=== PATIENT | female | born 1990 | race Caucasian/White ===

== ENCOUNTER 2017-09-25 20:49 | Emergency (ER) | payer BC, OTHER, SELFPAY ==
--- NOTE | 2017-09-25 21:22 | RAD ---
CHEST ONE VIEW 09/25/17 HISTORY: Dyspnea. COMPARISON: 02/06/13. FINDINGS: The cardiac silhouette is magnified by projection. Pulmonary vasculature is accentuated by shallow in spiration. Mediastinum is midline. There is no confluent air space consolidation, or evidence of pneu mothorax. Metallic device overlying the right atrium is stable. IMPRESSION: No active cardiopulmonary abnormalities are demonstrated. POS: [facility]
[2017-09-25 21:48] LABS: #Basophils 0.1 thou/uL (0.0-0.2); #Eosinphils 0.1 thou/uL (0.0-0.7); #Lymphocytes 1.6 thou/uL (1.20-3.40); #Monocytes 0.4 thou/uL (0.11-0.59); #Neutrophils 3.6 thou/uL (1.40-6.50); %Basophils 1.9 % (0.0-1.0); %Eosinophils 1.8 % (0.0-10.0); %Lymphocytes 27.4 % (21.0-51.0); %Monocytes 7.4 % (0.0-10.0); Hematocrit 41.3 % (36.0-47.0); Mean Platelet Volume 6.6 fL (7.4-10.4); Red Blood Cell (RBC) Count 5.02 mill/uL (4.20-5.40); White Blood Cell (WBC) Count 5.9 thou/uL (4.8-10.8)
[2017-09-25 21:49] LABS: ALT (SGPT) 17 U/L (8-55); AST (SGOT) 22 U/L (5-34); Alkaline Phosphatase 65 U/L (40-150); Anion Gap 15 mmol/L (10-20); BUN (Urea Nitrogen) 10 mg/dL (7.0-18.7); Bilirubin, Total 0.5 mg/dL (0.2-1.2); CK (CPK) 83 U/L (29-168); Calc. Creatinine Clearance 0 mL/min (70-130); Calcium 9.5 mg/dL (7.8-10.44); Carbon Dioxide 22 mmol/L (22-29); Chloride 106 mmol/L (98-107); Estimated GFR-MDRD Greater than 90; Globulin 3.1 g/dL (2.4-3.5); Lipase 37 U/L (8-78); Protein, Total 7.4 g/dL (6.0-8.3); Troponin I Less than 0.010 ng/mL (< 0.028)
--- NOTE | 2017-11-07 14:39 | EKG ---
Test Reason : SOB Blood Pressure : / mmHG Vent. Rate : 091 BPM Atrial Rate : 091 BPM P-R Int : 134 ms QRS Dur : 088 ms QT Int : 358 ms P-R-T Axes : 041 069 027 degrees QTc Int : 440 ms Normal sinus rhythm with sinus arrhythmia Possible Inferior infarct , age undetermined Nonspecific ST abnormality Abnormal ECG Confirmed by MATIAS DEJESUS ([id number]), general expeditor JOSE MARTIN MENDIOLA ([id number]) on 11/07/2017 2:38:39 PM Referred By: Confirmed By:MATIAS DEJESUS
== END 2017-09-25 22:07 | disposition home or self-care (01) ==
LOC: SCSER 20:49
DX: R07.89 Other chest pain (principal)
CPT/HCPCS: 71010; 80053; 82550; 82553; 83690; 84443; 84484; 85025; 85379; 93005

== ENCOUNTER 2018-01-02 09:09 | Emergency (ER) | payer BC, OTHER, SELFPAY ==
[2018-01-02] MEDS ORDERED: Pantoprazole 40 MG VIAL ONE (09:57)
[2018-01-02] MEDS ORDERED: Ondansetron HCl/PF 4 MG/2 ML Vial ONE ×2 (09:57→10:43)
[2018-01-02] MEDS ORDERED: Lidocaine Viscous Sol 2% 15 ml UD Cup ONE (09:57)
[2018-01-02] MEDS ORDERED: Mag-Al Plus 1200 MG/1200 MG/120 MG/30 ML UDCUP ONE (09:57)
[2018-01-02 10:10] LABS: BHCG - Serum Negative (NEGATIVE); Pregs Control Background? CLEAR/WHITE (CLR/WHITE); Pregs Control Bar Appear? YES (CONTROL BAR)
[2018-01-02 10:15] LABS: Hemoglobin 16.4 g/dL (12.0-16.0); Mean Corpuscular HGB CONC 34.4 g/dL (32.0-36.0); Mean Corpuscular Hemoglobin 27.8 pg (27.0-31.0); Mean Platelet Volume 7.9 fL (7.4-10.4); Platelet Count 251 thou/uL (130-400); Red Blood Cell (RBC) Count 5.91 mill/uL (4.20-5.40)
[2018-01-02 10:17] LABS: ALT (SGPT) 20 U/L (8-55); AST (SGOT) 24 U/L (5-34); Albumin 4.7 g/dL (3.5-5.0); Alkaline Phosphatase 68 U/L (40-150); Anion Gap 19 mmol/L (10-20); BUN (Urea Nitrogen) 13 mg/dL (7.0-18.7); Bilirubin, Total 1.2 mg/dL (0.2-1.2); Calc. Creatinine Clearance 0 mL/min (70-130); Calcium 9.7 mg/dL (7.8-10.44); Carbon Dioxide 18 mmol/L (22-29); Chloride 105 mmol/L (98-107); Estimated GFR-MDRD Greater than 90; Globulin 3.2 g/dL (2.4-3.5); Glucose 106 mg/dL (70-105); Protein, Total 7.9 g/dL (6.0-8.3); Sodium 138 mmol/L (136-145)
[2018-01-02 10:19] LABS: Troponin I Less than 0.010 ng/mL (< 0.028)
[2018-01-02 10:26] LABS: Band 8 % (5-11); Lymphocytes 4 % (21-51); MDiff Complete? YES; Monocytes 2 % (0-10); Neutrophil 85 % (42-75); PLT Morphology Comment Appears Adequate; RBC Morphology Normal; Reactive Lymphocytes 1 % (0-10)
[2018-01-02 10:29] LABS: Bilirubin Small (Negative); Blood, Urine Negative (Negative); Clarity Clear (Clear); Glucose, Urine (Dipstick) Negative (Negative); Leukocyte Negative (Negative); Nitrite Negative (Negative); Protein, Urine (Dipstick) Trace mg/dL (Neg-Trace); Specific Gravity, Urine 1.015 (1.005-1.030); Urobilinogen 0.2 mg/dL (0.2-1.0); pH, Urine 7.5 (5.0-9.0)
[2018-01-02 10:30] LABS: Pregnancy Test - Urine (BHCG) Negative (Negative); Pregu Control Background? CLEAR/WHITE (CLR/WHITE); Pregu Control Bar Appear? YES (CONTROL BAR); Specific Gravity 1.015 (1.002-1.036)
[2018-01-02 10:39] LABS: Amphetamine Not Detected (NotDetected); Barbiturates Screen Not Detected (NotDetected); Benzodiazepine Screen Not Detected (NotDetected); Cocaine Metabolite Screen Not Detected (NotDetected); Medtox Control Line Valid? VALID (VALID); Methadone Not Detected (NotDetected); Methamphetamine Not Detected (NotDetected); Opiate Screen Not Detected (NotDetected); Oxycodone Screen Not Detected (NotDetected); Phencyclidine (PCP) Not Detected (NotDetected); THC/Cannabinoid Screen Not Detected (NotDetected); Tricyclic Screen Not Detected (NotDetected)
--- NOTE | 2018-01-02 11:27 | RAD ---
CHEST 1 VIEW: HISTORY: Chest pain. COMPARISON: 09/25/17. FINDINGS: Cardiac silhouette is magnified by projection. Pulmonary vasculature is upper limits of normal. Med iastinum is midline. There is no lobar consolidation or evidence of pneumothorax. IMPRESSION: No active cardiopulmonary abnormalities are demonstrated. POS: [facility]
--- NOTE | 2018-01-02 11:55 | CT ---
CT ABDOMEN AND PELVIS WITHOUT CONTRAST: Date: 01/02/18 HISTORY: Abdominal pain, emesis, epigastric pain radiating into the chest and left shoulder. FINDINGS: Absence of oral and IV contrast reduces the sensitivity of exam, particularly for evaluation of solid organs and bowel. The lung bases are clear. There are postop changes of cholecystectomy. No free air is seen. There is a small amount of free fluid in the pelvis. Postop changes are also seen in the right lower quadrant. Uterus and ovaries are present. There are multiple tiny calculi in the left kidney. No calculi seen in the right kidney, either urete r, or the urinary bladder. No hydroureteronephrosis is seen on either side. No acute osseous abnormal ities are seen. IMPRESSION: 1. Nonobstructing left renal calculi. 2. Small amount of free fluid in the pelvis. POS: [facility]
[2018-01-02] MEDS ORDERED: Acetaminophen 500 MG TAB ONE (12:49)
== END 2018-01-02 14:42 | disposition home or self-care (01) ==
LOC: SCSER 09:09
DX: K27.9 Peptic ulcer, site unspecified, unspecified as acute or chronic, without hemorrhage or perforation (principal); R11.2 Nausea with vomiting, unspecified; J45.909 Unspecified asthma, uncomplicated
CPT/HCPCS: 71045; 74176; 80053; 80306; 81003; 81025; 82553; 84484; 84703; 85025; 93005; 96361; 96374; 96375; 96376; C9113; J2405

== ENCOUNTER 2019-06-26 13:24 | Emergency (ER) | payer BC, MEDICAID ==
[2019-06-26] MEDS ORDERED: Metoclopramide HCl 10 MG/2 ML VIAL ONE (14:03)
[2019-06-26] MEDS ORDERED: diphenhydrAMINE 50 MG/ML VIAL ONE (14:03)
[2019-06-26] MEDS ORDERED: Acetaminophen 325 MG TAB ONE (14:18)
== END 2019-06-26 14:23 | disposition home or self-care (01) ==
LOC: ERS 13:24
DX: O99.89 Other specified diseases and conditions complicating pregnancy, childbirth and the puerperium (principal); R51 Headache; O99.511 Diseases of the respiratory system complicating pregnancy, first trimester; J45.909 Unspecified asthma, uncomplicated; Z3A.10 10 weeks gestation of pregnancy
CPT/HCPCS: 96365; 96375; J1200; J2765

== ENCOUNTER 2019-07-01 12:14 | Emergency (ER) | payer MEDICAID ==
[2019-07-01] MEDS ORDERED: Acetaminophen 500 MG TAB ONE (13:45)
[2019-07-01] MEDS ORDERED: Metoclopramide HCl 10 MG/2 ML VIAL ONE (13:46)
[2019-07-01] MEDS ORDERED: diphenhydrAMINE 50 MG/ML VIAL ONE (13:46)
[2019-07-01 14:13] LABS: #Lymphocytes 0.8 thou/uL (1.20-3.40); #Monocytes 0.3 thou/uL (0.11-0.59); #Neutrophils 7.6 thou/uL (1.40-6.50); %Basophils 0.1 % (0.0-1.0); %Eosinophils 0.2 % (0.0-10.0); %Lymphocytes 8.9 % (21.0-51.0); %Monocytes 3.2 % (0.0-10.0); %Neutrophils 87.6 % (42.0-75.0); Hemoglobin 12.9 g/dL (12.0-16.0); Mean Corpuscular HGB CONC 35.3 g/dL (32.0-36.0); Mean Corpuscular Hemoglobin 29.4 pg (27.0-31.0); Mean Corpuscular Volume 83.5 fL (78.0-98.0); Mean Platelet Volume 7.8 fL (7.4-10.4); Platelet Count 237 thou/uL (130-400); RBC Distribution Width 11.2 % (11.5-14.5); Red Blood Cell (RBC) Count 4.37 mill/uL (4.20-5.40); White Blood Cell (WBC) Count 8.6 thou/uL (4.8-10.8)
[2019-07-01 14:35] LABS: ALT (SGPT) 15 U/L (8-55); AST (SGOT) 19 U/L (5-34); Albumin 3.9 g/dL (3.5-5.0); Alkaline Phosphatase 54 U/L (40-150); Anion Gap 13 mmol/L (10-20); BUN (Urea Nitrogen) 5 mg/dL (7.0-18.7); Bilirubin, Total 0.3 mg/dL (0.2-1.2); Calc. Creatinine Clearance 0 mL/min (70-130); Calcium 8.9 mg/dL (7.8-10.44); Carbon Dioxide 22 mmol/L (22-29); Chloride 106 mmol/L (98-107); Estimated GFR-MDRD Greater than 90; Globulin 2.8 g/dL (2.4-3.5); Glucose 86 mg/dL (70-105); Potassium 3.5 mmol/L (3.5-5.1); Protein, Total 6.7 g/dL (6.0-8.3); Sodium 137 mmol/L (136-145)
[2019-07-01] MEDS ORDERED: Magnesium 2 GM/50 ML BAG (IN WATER) ONE (15:35)
--- NOTE | 2019-07-01 15:48 | CT ---
HEAD CT NONCONTRAST: 07/01/19 INDICATION: Headache. Reference made to 06/14/09 brain MRI. FINDINGS: There is a focal area of asymmetric hypoattenuation of the posterior right cerebral hemisphere. This likely relates to segmental imaging of the posterior most aspect of the right occipital horn. Otherwise, no acute intracranial hemorrhage, mass effect, midline shift, or ventriculomegaly. Imaged paranasal sinuses and mastoid air cells are clear. IMPRESSION: Focal hypoattenuation posterior right cerebrum. This could relate to partial imaging of the occipita l horn, although underlying gliosis cannot be entirely excluded. This could be more definitively conf irmed with follow-up brain MRI. POS: [facility]
--- NOTE | 2019-07-01 17:50 | MRI ---
BRAIN MRI WITHOUT CONTRAST: Date: 07/01/19 COMPARISON: None. HISTORY: Headache. TECHNIQUE: Multiplanar, multisequence MR imaging of the brain obtained without contrast. FINDINGS: The diffusion-weighted imaging demonstrates no evidence for acute infarction. The axial gradient echo imaging demonstrates no evidence for intracranial hemorrhage. The imaged paranasal sinuses/mastoid air cells demonstrate normal signal intensity aside from minimal mucosal thickening of the ethmoid air cells. Arterial flow-voids at the axial level of the skull bas e appear grossly unremarkable on the T2-weighted imaging. Regional bone marrow signal intensity appears within normal limits. The gradient echo imaging demonstrates no evidence for intracranial hemorrhage. IMPRESSION: No acute findings. POS: [facility]
[2019-07-01] MEDS ORDERED: Acetaminophen/Codeine 30-300mg Tablet ONE (18:13)
[2019-07-01 18:55] LABS: Bilirubin Negative (Negative); Blood, Urine Negative (Negative); Clarity Clear (Clear); Glucose, Urine (Dipstick) Normal (Negative); Leukocyte Negative Leu/uL (Negative); Nitrite Negative (Negative); Protein, Urine (Dipstick) Negative (Neg-Trace); Urobilinogen Normal mg/dL (Less than 2)
[2019-07-01] MEDS ORDERED: Ondansetron ODT 8 MG TAB ONE (19:25)
== END 2019-07-01 19:30 | disposition home or self-care (01) ==
LOC: ERS 12:14
DX: O21.9 Vomiting of pregnancy, unspecified (principal); O99.89 Other specified diseases and conditions complicating pregnancy, childbirth and the puerperium; R51 Headache; O99.511 Diseases of the respiratory system complicating pregnancy, first trimester; J45.909 Unspecified asthma, uncomplicated; Z3A.10 10 weeks gestation of pregnancy
CPT/HCPCS: 36415; 70450; 70551; 70553; 80053; 81003; 85025; J1200; J2765; J3475

== ENCOUNTER 2019-07-04 19:20 | Observation (INO) | payer OTHER ==
[2019-07-04] MEDS ORDERED: Acetaminophen 500 MG TAB ONE (19:35)
[2019-07-04] MEDS ORDERED: Metoclopramide HCl 10 MG/2 ML VIAL ONE ×2 (19:35→20:04)
[2019-07-04] MEDS ORDERED: diphenhydrAMINE 50 MG/ML VIAL ONE (19:35)
[2019-07-04 20:29] LABS: #Lymphocytes 0.8 thou/uL (1.20-3.40); #Monocytes 0.2 thou/uL (0.11-0.59); #Neutrophils 7.9 thou/uL (1.40-6.50); %Basophils 0.4 % (0.0-1.0); %Eosinophils 0.1 % (0.0-10.0); %Lymphocytes 8.5 % (21.0-51.0); %Monocytes 2.6 % (0.0-10.0); %Neutrophils 88.4 % (42.0-75.0); Hemoglobin 14.2 g/dL (12.0-16.0); Mean Corpuscular HGB CONC 34.2 g/dL (32.0-36.0); Mean Corpuscular Hemoglobin 28.3 pg (27.0-31.0); Mean Corpuscular Volume 82.8 fL (78.0-98.0); Platelet Count 248 thou/uL (130-400); RBC Distribution Width 11.3 % (11.5-14.5); Red Blood Cell (RBC) Count 5.02 mill/uL (4.20-5.40)
[2019-07-04 20:32] LABS: Base Excess-Venous -7.7 mmol/L (-2.0 to 3.0); Bicarbonate (HCO3v) 15.8 mmol/L (22.0-28.0); Calcium, Ionized 1.13 mmol/L (See Comments:); Chloride 107 mmol/L (98-107); Hemoglobin - Calc 14.4 g/dL (12.0-16.0); Potassium 3.4 mmol/L (3.5-5.1); Sodium 138 mmol/L (138-145); T. Carbon Dioxide 16.6 mmol/L (22.0-28.0); vO2 Saturation-calc 95.1 % (60.0-85.0)
[2019-07-04 20:44] LABS: ALT (SGPT) 17 U/L (8-55); AST (SGOT) 20 U/L (5-34); Albumin 4.3 g/dL (3.5-5.0); Alkaline Phosphatase 57 U/L (40-150); Anion Gap 19 mmol/L (10-20); BUN (Urea Nitrogen) 11 mg/dL (7.0-18.7); Bilirubin, Total 0.7 mg/dL (0.2-1.2); Calc. Creatinine Clearance 0 mL/min (70-130); Carbon Dioxide 15 mmol/L (22-29); Chloride 106 mmol/L (98-107); Estimated GFR-MDRD Greater than 90; Globulin 3.3 g/dL (2.4-3.5); Glucose 128 mg/dL (70-105); Potassium 3.4 mmol/L (3.5-5.1); Protein, Total 7.6 g/dL (6.0-8.3); Sodium 137 mmol/L (136-145)
[2019-07-04] MEDS ORDERED: Acetaminophen 325 MG TAB PO PRN (22:14)
[2019-07-04] MEDS ORDERED: Ondansetron PF 4 MG/2 ML Vial SLOW IVP PRN (22:14)
[2019-07-04] MEDS ORDERED: D5 1/2 NS w/20 mEq KCL 1,000 ML IV SCH (22:15)
[2019-07-04] MEDS ORDERED: Metoclopramide HCl 10 MG/2 ML VIAL IVP PRN (22:43)
[2019-07-04] MEDS ORDERED: diphenhydrAMINE 50 MG/ML VIAL IVP PRN (22:44)
[2019-07-04] MEDS ORDERED: Lactated Ringer's 1,000 ML IV SCH (23:00)
[2019-07-04] MEDS: diphenhydrAMINE 50 MG/ML VIAL IVP SCH (23:54)
[2019-07-05 00:51] VITALS: BMI 22.0
[2019-07-05] MEDS: Metoclopramide HCl 10 MG/2 ML VIAL IVP SCH ×3 (04:18→21:54)
[2019-07-05] MEDS: Lactated Ringer's 1,000 ML IV SCH ×4 (04:18→21:54)
[2019-07-05] MEDS: diphenhydrAMINE 50 MG/ML VIAL IVP SCH ×5 (04:19→21:58)
--- NOTE | 2019-07-05 07:16 | HP ---
PRIMARY METAL ENGRAVER: Tyron Alexander MD CHIEF COMPLAINT: Persistent nausea and vomiting with failed outpatient management. HISTORY OF PRESENT ILLNESS: The patient is a 29-year-old G3, P2 female with an intrauterine at about 10 weeks' gestation, re-presented to the emergency room a 3rd time for persistent nausea and vomiting. The patient reports that she has had about 12 pounds weight loss and has not been tolerating any kind of p.o. intake including ice for the last day or two. The patient reports she has also been complicating her situation or her migraines that have been exacerbating, making the nausea and vomiting worse than otherwise would be. The patient reports that her prior was also complicated by persistent nausea and vomiting. The patient's evaluation with her prior visits included CT and MRI of the head with a Neurology consult. The patient denies any fever or cough or illness, fall, chest pain, shortness of breath, diarrhea or constipation, hip problems, knee problems, vaginal bleeding or leakage of fluid, urinary urgency or frequency. PAST MEDICAL HISTORY: Asthma, ASD closure, and migraines. PAST SURGICAL HISTORY: Appendectomy, cholecystectomy, and prior x2. SOCIAL HISTORY: Denies drug, alcohol, or tobacco use. ALLERGIES: MORPHINE, WHICH CAUSES HEART PALPITATIONS AND AZITHROMYCIN. MEDICATIONS: 1. vitamins. 2. Zofran. 3. Phenergan. PHYSICAL EXAMINATION: VITAL SIGNS: Blood pressure 105/60, temperature 98.3, pulse of 92, respiratory rate of 17, and saturating 100% on room air. GENERAL: At the time of my evaluation, she appeared to be in minimal distress. Weak and lethargic. Otherwise, alert and oriented, cooperative and pleasant to interact with. HEENT: Head is normocephalic, atraumatic. LUNGS: Clear to auscultation bilaterally. HEART: Has regular rate and rhythm. ABDOMEN: Soft and nontender. EXTREMITIES: Nontender. Nonedematous. GENITOURINARY: Deferred at this time. LABORATORY DATA: Lab work showed a white count of 9, hemoglobin 14.2, hematocrit 41.5, and platelets of 249,000. Sodium of 138, potassium of 3.4, bicarb of 15, BUN of 11, creatinine of 0.66, glucose of 128, AST is 20, and ALT of 17. Beta-hydroxybutyrate of 2.56. ASSESSMENT AND PLAN: The patient is being admitted for IV hydration and IV antiemetics. She will be on Reglan 10 mg 3 times a day and Zofran 8 mg IV twice a day, Benadryl 12.5 mg every 4 hours, and vitamin B6 of 25 mg twice a day. Once she is feeling better and is able to feel of a p.o. trial and is tolerating it, we will convert the patient's medications over to p.o. Her primary OB is Dr. Tyron Alexander, who will be assuming care. Job ID: [id number]
[2019-07-05] MEDS: pyridOXINE 50 MG (B6) TAB PO SCH ×2 (09:16→21:59)
[2019-07-05] MEDS: Acetaminophen 500 MG TAB PO PRN (23:03)
[2019-07-06] MEDS: diphenhydrAMINE 50 MG/ML VIAL IVP SCH ×5 (01:27→18:00)
[2019-07-06] MEDS ORDERED: Sodium Chloride 0.9% 10 ML ONE ×2 (05:06→10:07)
[2019-07-06] MEDS: Metoclopramide HCl 10 MG/2 ML VIAL IVP SCH ×2 (05:13→14:13)
[2019-07-06] MEDS: Acetaminophen 500 MG TAB PO PRN (05:13)
[2019-07-06] MEDS: Lactated Ringer's 1,000 ML IV SCH ×2 (05:19→13:26)
[2019-07-06] MEDS: pyridOXINE 50 MG (B6) TAB PO SCH (10:10)
--- NOTE | 2019-07-06 19:00 | PDOC.EVN ---
Event Note - Event Note Event Note: Patient is no tolerating a regular diet, and feels well enough to go home. Offered the choise to stay one more night, she has asked to go home on po medications. She still has occasional loose sallie, but that too has improved. GEN: NAD, A&O x3 ABDOM: Soft, NT,ND, GRAVID EXTREM: NO C/C/E Psych: NL Affect Skin: NL Skin without evidence of dehydration. Assessment 1. Single IUP @ 11 and 5 weeks 2. Hyperemesis Gravidarum 3 Hx of x 2 Plan: 1. DC to home. 2. New Medication schedule 3. F/U next week in clinic
[2019-07-06 20:09] VITALS: BP 113/59; TEMP 97.6
== END 2019-07-06 19:50 | disposition home or self-care (01) ==
LOC: SCSER 19:20 → 3SW 22:19
PROVIDERS: ADMIT Obstetrics & Gynecology; ATTEND Obstetrics & Gynecology
DX: O21.1 Hyperemesis gravidarum with metabolic disturbance (principal); O99.351 Diseases of the nervous system complicating pregnancy, first trimester; G43.909 Migraine, unspecified, not intractable, without status migrainosus; O99.511 Diseases of the respiratory system complicating pregnancy, first trimester; J45.909 Unspecified asthma, uncomplicated; Z3A.10 10 weeks gestation of pregnancy; Z88.1 Allergy status to other antibiotic agents; Z88.5 Allergy status to narcotic agent
CPT/HCPCS: 36415; 80053; 82010; 82330; 82803; 85025; 96361; 96365; 96366; 96375; 96376; G0378; J1200; J2405; J2765

== ENCOUNTER 2019-11-25 16:05 | Emergency (ER) | payer OTHER ==
[2019-11-25 17:46] LABS: #Eosinphils 0.1 thou/uL (0.0-0.7); #Lymphocytes 1.3 thou/uL (1.20-3.40); #Monocytes 0.4 thou/uL (0.11-0.59); #Neutrophils 6.5 thou/uL (1.40-6.50); %Basophils 0.5 % (0.0-1.0); %Eosinophils 0.6 % (0.0-10.0); %Lymphocytes 15.5 % (21.0-51.0); %Monocytes 4.3 % (0.0-10.0); %Neutrophils 79.1 % (42.0-75.0); Hemoglobin 11.4 g/dL (12.0-16.0); Mean Corpuscular HGB CONC 34.7 g/dL (32.0-36.0); Mean Corpuscular Hemoglobin 29.2 pg (27.0-31.0); Mean Corpuscular Volume 84.1 fL (78.0-98.0); Mean Platelet Volume 7.5 fL (7.4-10.4); Platelet Count 257 thou/uL (130-400); RBC Distribution Width 11.9 % (11.5-14.5); White Blood Cell (WBC) Count 8.3 thou/uL (4.8-10.8)
[2019-11-25 18:04] LABS: ALT (SGPT) 36 U/L (8-55); AST (SGOT) 27 U/L (5-34); Albumin 3.4 g/dL (3.5-5.0); Alkaline Phosphatase 122 U/L (40-110); Anion Gap 12 mmol/L (10-20); BUN (Urea Nitrogen) 6 mg/dL (7.0-18.7); Bilirubin, Total 0.4 mg/dL (0.2-1.2); Calc. Creatinine Clearance 0 mL/min (70-130); Calcium 8.4 mg/dL (7.8-10.44); Carbon Dioxide 21 mmol/L (22-29); Chloride 107 mmol/L (98-107); Estimated GFR-MDRD 76; Globulin 3.3 g/dL (2.4-3.5); Glucose 118 mg/dL (70-105); Potassium 3.5 mmol/L (3.5-5.1); Protein, Total 6.7 g/dL (6.0-8.3); Sodium 136 mmol/L (136-145)
[2019-11-25 18:53] LABS: Bilirubin Negative (Negative); Blood, Urine Negative (Negative); Clarity Clear (Clear); Glucose, Urine (Dipstick) Normal (Negative); Leukocyte Negative Leu/uL (Negative); Nitrite Negative (Negative); Protein, Urine (Dipstick) Negative (Neg-Trace); Urobilinogen Normal mg/dL (Less than 2)
== END 2019-11-25 19:17 | disposition home or self-care (01) ==
LOC: ERS 16:05 → L&D/OP 16:05 → EDSTATUS 16:13 → ERS 19:17
DX: O99.89 Other specified diseases and conditions complicating pregnancy, childbirth and the puerperium (principal); H53.9 Unspecified visual disturbance; O99.513 Diseases of the respiratory system complicating pregnancy, third trimester; Z3A.32 32 weeks gestation of pregnancy
CPT/HCPCS: 36415; 80053; 81003; 85025; 99284

== ENCOUNTER 2019-12-08 09:40 | Day surgery (SDC) | payer OTHER ==
[2019-12-08] MEDS ORDERED: hydrALAZINE 20 MG/ML VIAL SLOW IVP PRN (10:02)
[2019-12-08 10:40] VITALS: BMI 30.7
[2019-12-08] MEDS ORDERED: Promethazine HCl 25 MG/ML VIAL SLOW IVP PRN (10:44)
[2019-12-08] MEDS ORDERED: Lactated Ringer's 1,000 ML IV SCH ×2 (10:45)
[2019-12-08 11:03] LABS: Bilirubin Negative (Negative); Blood, Urine Negative (Negative); Clarity Turbid (Clear); Glucose, Urine (Dipstick) Normal (Negative); Leukocyte Negative Leu/uL (Negative); Nitrite Negative (Negative); Protein, Urine (Dipstick) 10 mg/dL (Neg-Trace); RBC/HPF 0-3 HPF (0-3); Urobilinogen Normal mg/dL (Less than 2)
[2019-12-08 11:06] LABS: #Lymphocytes 0.9 thou/uL (1.20-3.40); #Monocytes 0.4 thou/uL (0.11-0.59); #Neutrophils 4.8 thou/uL (1.40-6.50); %Basophils 0.3 % (0.0-1.0); %Eosinophils 0.5 % (0.0-10.0); %Monocytes 6.7 % (0.0-10.0); %Neutrophils 77.5 % (42.0-75.0); Mean Corpuscular HGB CONC 35.4 g/dL (32.0-36.0); Mean Corpuscular Hemoglobin 29.5 pg (27.0-31.0); Mean Corpuscular Volume 83.4 fL (78.0-98.0); Mean Platelet Volume 7.6 fL (7.4-10.4); Platelet Count 211 thou/uL (130-400); RBC Distribution Width 12.1 % (11.5-14.5); Red Blood Cell (RBC) Count 3.72 mill/uL (4.20-5.40); White Blood Cell (WBC) Count 6.2 thou/uL (4.8-10.8)
[2019-12-08 11:11] LABS: Bacteria/HPF Rare-Few HPF (None Seen)
[2019-12-08 11:26] LABS: ALT (SGPT) 37 U/L (8-55); AST (SGOT) 33 U/L (5-34); Albumin 3.5 g/dL (3.5-5.0); Alkaline Phosphatase 142 U/L (40-110); Anion Gap 12 mmol/L (10-20); BUN (Urea Nitrogen) 5 mg/dL (7.0-18.7); Bilirubin, Total 0.6 mg/dL (0.2-1.2); Calc. Creatinine Clearance 117 mL/min (70-130); Calcium 8.7 mg/dL (7.8-10.44); Carbon Dioxide 19 mmol/L (22-29); Chloride 108 mmol/L (98-107); Estimated GFR-MDRD Greater than 90; Globulin 3.2 g/dL (2.4-3.5); Glucose 82 mg/dL (70-105); Potassium 3.4 mmol/L (3.5-5.1); Protein, Total 6.7 g/dL (6.0-8.3); Sodium 136 mmol/L (136-145)
[2019-12-08] MEDS ORDERED: Ondansetron PF 4 MG/2 ML Vial IVP PRN (11:35)
--- NOTE | 2019-12-08 23:48 | SS ---
DATE OF ADMISSION: 12/08/2019 DATE OF DISCHARGE: 12/08/2019 REGULAR PHYSICIAN: Tyron Alexander MD EVALUATING PHYSICIAN: Hiro Angel MD CHIEF COMPLAINT: Nausea and vomiting at home. HISTORY OF PRESENT ILLNESS: Ms. Hernandez is a 29-year-old white G4, P2 with an estimated date of confinement of 01/20/2020, who presents complaining of persistent nausea and vomiting over the last two days. She states that Dr. Alexander had prescribed Zofran for her to use at home and this has not been effective in controlling her symptoms. She denies associated fever, chills, or recent ill contacts at home. Her care has been with Dr. Alexander and she reports it has been uncomplicated. PAST OBSTETRICAL HISTORY: Includes 2 previous C-sections at term. PAST MEDICAL HISTORY: Includes occasional tachycardia for which she has been evaluated by Cardiology. PAST SURGICAL HISTORY: Includes ASD closure, as well as an EP procedure for tachycardia. CURRENT MEDICATIONS: vitamins. ALLERGIES: INCLUDE THAT TO MORPHINE SULFATE, WHICH SHE SAYS GIVES HER TACHYCARDIA AND ZITHROMAX GIVES HER NAUSEA AND VOMITING. SOCIAL HISTORY: Denies tobacco or alcohol use. FAMILY HISTORY: Unremarkable. REVIEW OF SYSTEMS: Denies ruptured membranes, decreased movement or vaginal bleeding. PHYSICAL EXAMINATION: VITAL SIGNS: Blood pressure is 123/76, pulse is in the 100s. GENERAL: She is pleasant, but apparently she does not feel well. heart rate tracing is stable. There are spontaneous accelerations. No decelerations are seen. No uterine activity is noted. LABORATORY DATA: White count 6.2, hemoglobin and hematocrit are 11.0 and 31.0, platelet count 211,000. Chemistries; sodium 136, potassium 3.4, creatinine 0.75 , glucose 82, total bilirubin 0.6, AST 33, ALT 37. Urinalysis shows a specific gravity of 1.011 with positive ketones. There is no nitrites or leukocyte esterase. The patient was given 2 L of IV fluids slowly and has begun to feel better. She also tolerates Gatorade by mouth and has had no nausea or vomiting with this. ASSESSMENT: 1. 33 and 6/ week intrauterine . 2. Nausea and vomiting. PLAN: The patient will be dismissed to home at this time. She requests discharge in home and she wants to try Gatorade and clear liquids there. She was told to stay on Gatorade for the next 12 to 24 hours and then advance her diet to a BRAT diet in the 24 hours after that. She has Zofran at home that was given to her by Dr. Alexander and she can use that. She was told to return should her symptoms recur. She voices understanding of her discharge instructions and was sent home in good condition. Job ID: [id number] [facility]
[2019-12-09] MEDS ORDERED: FLU VACC QS2019-20(6MOS UP)/PF 60 MCG/0.5 ML SYRINGE IM ONE (09:00)
== END 2019-12-08 16:10 | disposition home health service (06) ==
LOC: L&D/OP 09:40
PROVIDERS: ATTEND Obstetrics & Gynecology
DX: O21.2 Late vomiting of pregnancy (principal); Z3A.33 33 weeks gestation of pregnancy; Z79.899 Other long term (current) drug therapy; Z88.1 Allergy status to other antibiotic agents; Z88.5 Allergy status to narcotic agent
CPT/HCPCS: 80053; 81003; 85025; 96361; 96365; 96375; 99283; J2405; J2550

== ENCOUNTER 2019-12-30 21:04 | Day surgery (SDC) | payer OTHER ==
[2019-12-30 21:40] VITALS: BMI 30.7
[2019-12-30] MEDS ORDERED: hydrALAZINE 20 MG/ML VIAL SLOW IVP PRN (22:12)
--- NOTE | 2019-12-30 22:36 | PRG ---
DATE OF SERVICE: 12/30/2019 TIME OF SERVICE: 2010 hours. PRESENTING COMPLAINT: Contractions at 37 weeks gestation. HISTORY OF PRESENT ILLNESS: Ms. Hernandez is a 29-year-old, 4, para 2, AB1 with WALTER of 01/19, who sees Dr. Alexander. She has a history of previous x2. She reports contractions. Denies bleeding. Denies vaginal discharge. WAD LUBRICATOR HISTORY: x2, spontaneous miscarriage x1, O positive, antibody negative. Pap negative. Rubella immune. VDRL nonreactive. Hepatitis B, GC, chlamydia negative. Group B strep negative on 12/22. PAST MEDICAL HISTORY: Denies. PAST SURGICAL HISTORY: x2, appendectomy, cholecystectomy, and cardiac ablation. MEDICATIONS: vitamins. ALLERGIES: NONE. SOCIAL HISTORY: Denies tobacco, alcohol, or IV drug use. FAMILY HISTORY: Noncontributory. REVIEW OF SYSTEMS: Noncontributory. PHYSICAL EXAMINATION: GENERA: White female, in no acute distress. VITAL SIGNS: Blood pressure 132/86, temperature 98.2, respirations 18, and pulse 85. LUNGS: Clear to auscultation bilaterally. HEART: Regular rhythm. ABDOMEN: Soft, nontender without palpable contractions. Fundal height 36. FHTs 140s. Vulva without lesions. : Cervical exam by RN is closed, long, and high. EXTREMITIES: Without clubbing, cyanosis, or edema. The patient was monitored for approximately 40 minutes. She had a category 1 heart rate tracing, positive accelerations, no decelerations. The occasional uterine irritability was noted without definitive contractions. IMPRESSION: Discomforts of with Mario Arias contractions. No evidence of active labor, 37 weeks gestation, prior section x2. PLAN: ER precautions. Discharge home. Keep scheduled followup with Dr. Alexander, plan on scheduled repeat as scheduled at [facility] by Dr. Alexander. Job ID: [id number]
== END 2019-12-30 22:19 | disposition home or self-care (01) ==
LOC: L&D/OP 21:04
PROVIDERS: ATTEND Obstetrics & Gynecology
DX: O47.1 False labor at or after 37 completed weeks of gestation (principal); O09.293 Supervision of pregnancy with other poor reproductive or obstetric history, third trimester; O34.219 Maternal care for unspecified type scar from previous cesarean delivery; Z3A.37 37 weeks gestation of pregnancy

== ENCOUNTER 2020-01-03 11:58 | Inpatient (IN) | payer OTHER ==
[2020-01-03] MEDS ORDERED: hydrALAZINE 20 MG/ML VIAL SLOW IVP PRN ×3 (12:31→18:40)
[2020-01-03] MEDS: Lactated Ringer's 1,000 ML IV SCH ×2 (12:40→22:41)
[2020-01-03 12:49] VITALS: BMI 29.0
[2020-01-03] MEDS ORDERED: Butorphanol Tartrate 1 MG/ML VIAL SLOW IVP SCH (13:00)
[2020-01-03] MEDS ORDERED: Ondansetron PF 4 MG/2 ML Vial IVP PRN ×3 (13:21→18:40)
[2020-01-03] MEDS ORDERED: Butorphanol Tartrate 1 MG/ML VIAL SLOW IVP PRN (13:21)
[2020-01-03] MEDS ORDERED: Promethazine HCl 25 MG/ML VIAL IM PRN ×3 (13:21→18:40)
[2020-01-03] MEDS ORDERED: CEFAZOLIN 2 GM in Premix Bag 1 BAG IVPB SCH (13:30)
[2020-01-03] MEDS ORDERED: Lactated Ringer's 1,000 ML IV SCH (13:30)
[2020-01-03] MEDS ORDERED: Bicitra 30 ML UDCUP PO SCH (13:30)
[2020-01-03 14:02] LABS: Mean Corpuscular HGB CONC 36.5 g/dL (32.0-36.0); Mean Corpuscular Hemoglobin 30.4 pg (27.0-31.0); Mean Corpuscular Volume 83.4 fL (78.0-98.0); Mean Platelet Volume 8.3 fL (7.4-10.4); Platelet Count 201 thou/uL (130-400); RBC Distribution Width 11.8 % (11.5-14.5); Red Blood Cell (RBC) Count 3.63 mill/uL (4.20-5.40); White Blood Cell (WBC) Count 11.5 thou/uL (4.8-10.8)
[2020-01-03 14:37] LABS: HBSAg Index 0.25 S/CO (0-0.99); Hep B Surf Ag Non-Reactive S/CO (NonReactive)
[2020-01-03 14:38] LABS: Syphilis Antibody Nonreactive (Nonreactive); Syphilis Antibody Index 0.04 S/CO (<1.00 Non-Reactive)
[2020-01-03] MEDS ORDERED: PHENYLEPHRINE-NS 100 MCG/ML 10 ML SYRINGE ONE (15:07)
[2020-01-03] MEDS ORDERED: MORPHINE 5 MG/10 ML PF VIAL ONE (15:07)
[2020-01-03] MEDS ORDERED: Oxytocin 10 UNITS/ML VIAL ONE (15:07)
[2020-01-03] MEDS ORDERED: EPHEDRINE 25 MG/5 ML SYRINGE ONE (15:07)
[2020-01-03] MEDS ORDERED: Ondansetron PF 4 MG/2 ML Vial ONE (16:16)
--- NOTE | 2020-01-03 16:23 | PDOC.EVN ---
Event Note - Event Note Event Note: Pt is a 29yo female with iup 37wks presenting with ucx since 0700. Pt has a h/o 2 prior c/sections and desires a repeat . Pt reports painful contractions and is requesting pain medication. She was seen in clinic today and was reported to have a sve closed. vitals: 143/84 77 16 98.1 nad abd nttp in between ctx fht 120s mod ltv +accels and neg decels toco q3-4min A/P iup 37wks labor will admit to Dr Alexander for management. Anticipate repeat
[2020-01-03] MEDS ORDERED: Midazolam HCl 2 mg/2 ml Vial ONE (16:54)
[2020-01-03] MEDS ORDERED: Naloxone HCl 0.4 mg/ml Vial IVP PRN ×2 (17:07)
[2020-01-03] MEDS ORDERED: diphenhydrAMINE 50 MG/ML VIAL IVP PRN (17:07)
[2020-01-03] MEDS ORDERED: Promethazine HCl 25 MG SUPP PR PRN (17:07)
[2020-01-03] MEDS ORDERED: Naloxone HCl 0.4 mg/ml Vial IV PRN (17:07)
[2020-01-03] MEDS ORDERED: Communication Order-Pharmacy FS SCH (17:15)
[2020-01-03] MEDS ORDERED: Ketorolac Tromethamine 30 MG/ML VIAL ONE (17:34)
[2020-01-03] MEDS ORDERED: NS / Oxytocin 40 units/1000ml 1,000 ML IV SCH (18:40)
[2020-01-03] MEDS ORDERED: Lanolin Ointment 7 GM TUBE TOP PRN (18:40)
[2020-01-03] MEDS ORDERED: Methylergonovine 0.2 MG/ML VIAL IM PRN (18:40)
[2020-01-03] MEDS ORDERED: diphenhydrAMINE 25 MG CAP PO PRN (18:40)
[2020-01-03] MEDS ORDERED: Bisacodyl 10 MG SUPP PR PRN (18:40)
[2020-01-03] MEDS ORDERED: Measles/Mumps/Rubella 10 MCG/0.5 ML VIAL SC ONE (18:40)
[2020-01-03] MEDS ORDERED: Varicella virus, LIVE 0.5 ML VIAL SC ONE (18:40)
[2020-01-03] MEDS ORDERED: Adacel (T-DAP) 0.5 ML SYRINGE IM ONE (18:40)
[2020-01-03] MEDS ORDERED: Methylergonovine 0.2 MG/ML VIAL ONE (18:43)
[2020-01-03] MEDS: Ketorolac Tromethamine 30 MG/ML VIAL IVP PRN (22:41)
[2020-01-03] MEDS: Docusate Calcium (SURFAK) 240 MG CAP PO SCH (22:44)
--- NOTE | 2020-01-04 02:00 | CON ---
DATE OF CONSULTATION: 01/03/2020 1. Intrauterine at 37 weeks. 2. Labor. 3. Previous x2, desires repeat. For complete details of the operative note, please refer to Dr. Alexander's dictation as he is the primary surgeon. I was called in intraoperatively with concerns of bleeding at the surgical site. When I arrived, the fetus had been delivered and was at the table, being evaluated. The initial copious bleeding had been brought under control that was described as coming from some congested venous vessels on the uterus. The inspection of the surgical field did not show any copious bleeding. Dr. Alexander closed the hysterotomy and on inspection had some persistent oozing from the right angle of the hysterotomy. Complicating the surgery was a very full/ generous broadligment with filmy adhesions making it difficult to visualize well the angle of the hysterotomy. With a Ribbon retractor as a safety measure placed behind the broad ligament, the uterus was elevated with the use of a suture placed in the midline for aiding retraction and Dr. Alexander was able to better visualize that right angle and more securely closed it for hemostasis. Care was taken to avoid pelvic sidewall. Digital inspection failed to feel any suture that had been inadvertently passed through the broad ligament to the back side. The inspection of the surgical field showed good hemostasis and my intraoperative consultation was complete. I spent a total of about 15 to 20 minutes in the surgical field scrubbed. Job ID: [id number] [facility]
[2020-01-04] MEDS ORDERED: Zolpidem Tartrate 5 MG TAB PO PRN (05:15)
[2020-01-04] MEDS ORDERED: HYDROcodone/Acetaminophen 5/325 mg Tablet PO PRN ×2 (05:15)
[2020-01-04] MEDS ORDERED: Butorphanol Tartrate 1 MG/ML VIAL SLOW IVP PRN (05:15)
[2020-01-04] MEDS: Ketorolac Tromethamine 30 MG/ML VIAL IVP PRN (05:34)
[2020-01-04] MEDS: CEFAZOLIN 2 GM in Premix Bag 1 BAG IVPB SCH ×2 (05:35→12:34)
[2020-01-04] MEDS: Lactated Ringer's 1,000 ML IV SCH (05:36)
[2020-01-04 06:03] LABS: Hemoglobin 9.2 g/dL (12.0-16.0); Mean Corpuscular HGB CONC 34.5 g/dL (32.0-36.0); Mean Corpuscular Hemoglobin 29.5 pg (27.0-31.0); Mean Corpuscular Volume 85.4 fL (78.0-98.0); Platelet Count 152 thou/uL (130-400); RBC Distribution Width 12.1 % (11.5-14.5); Red Blood Cell (RBC) Count 3.11 mill/uL (4.20-5.40); White Blood Cell (WBC) Count 10.2 thou/uL (4.8-10.8)
[2020-01-04] MEDS: Prenatal Vitamin 1 TAB PO SCH (08:27)
[2020-01-04] MEDS: Docusate Calcium (SURFAK) 240 MG CAP PO SCH ×2 (08:27→21:12)
[2020-01-04] MEDS: Ibuprofen 800 MG TAB PO SCH ×2 (13:37→21:12)
--- NOTE | 2020-01-04 17:46 | PDOC.PP ---
Post Progress Note Post Day #: 1 PO intake tolerated: yes Flatus: yes Ambulation: yes Vital Signs (12 hours) Temp Pulse Resp BP Pulse Ox 01/04/20 15:50 98.5 F 77 16 107/56 L 01/04/20 11:36 98.5 F 79 20 108/60 01/04/20 08:10 97 01/04/20 07:48 97.9 F 68 20 105/55 L 97 01/04/20 06:24 98.2 F 62 17 109/60 Weight Weight 144 lb - Physical Examination General: NAD Cardiovascular: no m/r/g, RRR Respiratory: clear to auscultation bilaterally, non-labored breathing Abdominal: + bowel sounds, lochia, no distention, appropriately TTP Extremities: negative homans (B) Skin: CS incision dry & intact, no rash Neurological: no gross focal deficits Psychiatric: A&Ox3, normal affect Result Diagrams: 01/04/20 05:43 Additional Labs: Post Labs Blood Type O POSITIVE 01/03/20 13:49 Hep Bs Antigen Non-Reactive S/CO (NonReactive) 01/03/20 13:49
[2020-01-05] MEDS: Ibuprofen 800 MG TAB PO SCH ×3 (05:15→21:38)
[2020-01-05] MEDS: Prenatal Vitamin 1 TAB PO SCH (09:44)
[2020-01-05] MEDS: Docusate Calcium (SURFAK) 240 MG CAP PO SCH ×2 (09:44→21:38)
[2020-01-05] MEDS: Simethicone Chewable 80 MG TAB PO PRN (21:38)
--- NOTE | 2020-01-05 21:47 | PDOC.PP ---
Post Progress Note Post Day #: 2 PO intake tolerated: yes Flatus: yes Ambulation: yes Vital Signs (12 hours) Temp Pulse Resp BP Pulse Ox 01/05/20 19:13 98.4 F 86 16 131/85 99 01/05/20 16:56 98.4 F 90 16 119/73 98 01/05/20 12:03 98.1 F 73 20 117/77 Weight Weight 144 lb - Physical Examination General: NAD Cardiovascular: no m/r/g, RRR Respiratory: clear to auscultation bilaterally, non-labored breathing Abdominal: + bowel sounds, lochia, no distention Extremities: negative homans (B) Skin: CS incision dry & intact, no rash Neurological: no gross focal deficits (DC to home vs boarding tomorrow.) Psychiatric: A&Ox3, normal affect Result Diagrams: 01/04/20 05:43 Additional Labs: Post Labs Blood Type O POSITIVE 01/03/20 13:49 Hep Bs Antigen Non-Reactive S/CO (NonReactive) 01/03/20 13:49
--- NOTE | 2020-01-06 01:28 | DN ---
DATE OF PROCEDURE: 01/03/2020 TIME: 1632, Central Standard time. PREOPERATIVE DIAGNOSIS: Intrauterine at 37 weeks and 4 days with spontaneous onset of labor. POSTOPERATIVE DIAGNOSIS: Intrauterine at 37 weeks and 4 days with spontaneous onset of labor. PROCEDURE: Repeat 3rd low transverse section. FINDINGS: Viable male infant weighing 2652 g or 5 pounds 14 ounces. Apgars 3, 6, and 8. ESTIMATED BLOOD LOSS: 785 mL. COMPLICATIONS: Peritoneal and intraabdominal adhesions to the uterus. DETAILS OF THE PROCEDURE: The patient was consented and taken back to the operating room where spinal anesthesia was found to be adequate. She was then prepped and draped in the normal sterile fashion. A timeout was performed by the entire operative team. The incision was then marked with a marking pen tested using sharp pickups. An incision was then made with a scalpel. The incision was carried through the adipose tissue down to the underlying rectus fascia using both sharp dissection as well as cautery. Once the fascia was identified, it was incised in the midline and then the fascial incision was carried through in both lateral directions using sharp as well as cautery dissection techniques. Next, the superior aspect of the rectus fascia was grasped with 2 Kelly clamps, which was tented up and the rectus muscles were dissected off using blunt dissection as well as cautery dissection. Similarly, the inferior aspect of the fascial incision was grasped with 2 Kelly clamps, tented up and the rectus muscles were dissected off bluntly as well as sharply. Next, the rectus muscles were in the midline and the peritoneum identified. The peritoneum was then carefully grasped with 2 hemostats and entered sharply. The peritoneal incision was extended superiorly and inferiorly and bladder blade was placed in the lower abdomen. At this point, the uterus was identified and the bladder flap was then developed using pickups with teeth as well as Metzenbaum scissors in both lateral directions. The bladder flap was then dissected downwards using the screen room operator's finger as well as Metzenbaum scissors. The bladder blade was replaced. The lower uterine segment was then identified and entered sharply using a clean scalpel. The uterine incision was then dissected downwards until thin layer of muscle remained and this was entered bluntly using a hemostat to avoid any injury to the baby. The uterine incision was then stretched using two fingers in both lateral directions. An amniotomy was performed artificially using a hemostat and the baby was delivered using fundal pressure in a gentle fashion. Once out, the baby's mouth and nose were bulb suctioned, cord clamped and cut, and the baby was handed to waiting attendants. Next, the uterus was left in situ due to some dense pelvic adhesions, and it was cleared of all clots and debris and the uterine incision was repaired with #1 Monocryl in a running locking fashion. A 2nd suture of the same type was used to obtain complete hemostasis at the uterine incision. The bladder flap was reapproximated using 3-0 Monocryl. Next, patient's left and right adnexa were inspected and appeared to be within normal limits. The posterior cul-de-sac was blotted dry and hemostasis assured. One more look at the uterine incision demonstrated hemostasis. The peritoneum was reapproximated using 2-0 Monocryl without difficulty. The rectus muscles were then allowed to come back together and 0 chromic was used to aid in reapproximation of the muscle as necessary. The rectus fascia was then reapproximated in a running fashion using 0 Vicryl suture. The adipose tissue was then examined and appeared to be well approximated without any obvious separations. Finally, the skin was reapproximated with 3-0 Monocryl on a Domenico needle without difficulty and Dermabond adhesive was applied to the skin. Once the glue was dry, the drapes were removed and the patient was transferred to an ambulatory bed where she was taken to recovery awake and in stable condition. Sponge, lap, and needle counts were correct x3. Job ID: [id number] [facility]
[2020-01-06] MEDS: Simethicone Chewable 80 MG TAB PO PRN ×2 (05:32→10:08)
[2020-01-06] MEDS: Ibuprofen 800 MG TAB PO SCH ×2 (05:32→14:04)
[2020-01-06] MEDS: Docusate Calcium (SURFAK) 240 MG CAP PO SCH (10:08)
[2020-01-06] MEDS: Prenatal Vitamin 1 TAB PO SCH (10:08)
[2020-01-06 10:59] VITALS: BP 127/68; TEMP 98.3
== END 2020-01-06 15:50 | disposition home or self-care (01) | DRG 788 ==
LOC: L&D/OP 11:58 → L&D 16:40 → 3SW 20:26
PROVIDERS: ADMIT Obstetrics & Gynecology; ATTEND Obstetrics & Gynecology
PROC: 10D00Z1 Extraction of Products of Conception, Low, Open Approach (ICD-10-PCS; principal; 2020-01-03)
PROC: 0UN90ZZ Release Uterus, Open Approach (ICD-10-PCS; 2020-01-03)
DX: O34.211 Maternal care for low transverse scar from previous cesarean delivery (principal); Z3A.37 37 weeks gestation of pregnancy; Z37.0 Single live birth; N73.6 Female pelvic peritoneal adhesions (postinfective); O99.89 Other specified diseases and conditions complicating pregnancy, childbirth and the puerperium
CPT/HCPCS: 36415; 51702; 85027; 86780; 86850; 86900; 86901; 87340; 99285; J0595; J0690; J1885; J2210; J2250; J2274; J2405; J2590